=== PATIENT | male | born 1940 | race Caucasian/White ===

== ENCOUNTER 2017-03-30 11:12 | Outpatient (CLI) | payer MEDICARE, BC ==
--- NOTE | 2017-03-30 14:27 | RAD ---
FRONTAL AND LATERAL IMAGING OF THE CHEST: DATE: 03/30/17. COMPARISON: 06/19/16. HISTORY: Short of breath. FINDINGS: There is mild increased linear interstitial density within both lung bases. Lungs are mildly hyperin flated suggesting stable mild air trapping. There is no pneumothorax or pleural fluid. There is no lobar consolidation or alveolar edema. IMPRESSION: Stable interstitial prominence and pulmonary hyperinflation. Question a history of chronic obstructi ve pulmonary disease. No lobar consolidation or alveolar edema seen. POS: [facility]
== END 2017-03-30 11:13 | disposition home or self-care (01) ==
LOC: RAD 11:12
PROVIDERS: ATTEND Internal Medicine Pulmonary Disease
DX: R06.00 Dyspnea, unspecified (principal); J98.4 Other disorders of lung
CPT/HCPCS: 71020

== ENCOUNTER 2017-07-30 15:09 | Outpatient (CLI) | payer MEDICARE, BC | END 2017-07-30 15:10 | disposition home or self-care (01) | LOC: BICCT 15:09 | PROVIDERS: ATTEND Internal Medicine Cardiovascular Disease | DX: S09.90XA Unspecified injury of head, initial encounter (principal) | CPT/HCPCS: 70450 ==

== ENCOUNTER 2017-08-03 10:47 | Emergency (ER) | payer MEDICARE, BC ==
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
== END 2017-08-03 12:33 | disposition home or self-care (01) ==
LOC: ERS 10:47
DX: S06.0X0A Concussion without loss of consciousness, initial encounter (principal); S00.03XA Contusion of scalp, initial encounter; J44.9 Chronic obstructive pulmonary disease, unspecified; E78.5 Hyperlipidemia, unspecified; I48.91 Unspecified atrial fibrillation; I10 Essential (primary) hypertension; F32.9 Major depressive disorder, single episode, unspecified; Z87.891 Personal history of nicotine dependence; Z79.899 Other long term (current) drug therapy; W20.8XXA Other cause of strike by thrown, projected or falling object, initial encounter
CPT/HCPCS: 70450; 72125

== ENCOUNTER 2017-08-27 07:26 | Outpatient (CLI) | payer MEDICARE, BC | END 2017-08-27 07:27 | disposition home or self-care (01) | LOC: BICMRI 07:26 | PROVIDERS: ATTEND Internal Medicine | DX: F03.90 Unspecified dementia, unspecified severity, without behavioral disturbance, psychotic disturbance, mood disturbance, and anxiety (principal); G93.89 Other specified disorders of brain | CPT/HCPCS: 70553; 82565 ==

== ENCOUNTER 2019-02-01 12:52 | Outpatient (CLI) | payer MEDICARE, BC ==
--- NOTE | 2019-02-01 13:26 | RAD ---
Chest 2 views HISTORY: Dyspnea. COMPARISON: 01/14/2019. FINDINGS: Cardiac silhouette and pulmonary vasculature are unremarkable. Mediastinum is midline with aortic calcification. Lungs remain hyperinflated with mild linear scarring at each base. No confluent airspace consolidation, pneumothorax, or pleural fluid. IMPRESSION: Atherosclerosis. Pulmonary hyperinflation and other chronic-type findings are stable.
== END 2019-02-01 12:53 | disposition home or self-care (01) ==
LOC: RAD 12:52
PROVIDERS: ATTEND Internal Medicine Pulmonary Disease
DX: R06.00 Dyspnea, unspecified (principal); R91.8 Other nonspecific abnormal finding of lung field; I70.0 Atherosclerosis of aorta; J98.4 Other disorders of lung
CPT/HCPCS: 71046

== ENCOUNTER 2019-02-02 12:00 | Inpatient (IN) | payer MEDICARE, BC ==
[2019-02-03] MEDS ORDERED: Nitroglycerin 50 MG/250 ML BOT 250 ML ONE (06:19)
[2019-02-03] MEDS ORDERED: Phenylephrine HCL 10 MG/ML VIAL ONE (06:19)
[2019-02-03] MEDS ORDERED: Fentanyl 100 MCG/2 ML VIAL ONE (06:20)
[2019-02-03] MEDS ORDERED: Heparin 5,000 UNITS/ML VIAL ONE (06:32)
[2019-02-03] MEDS ORDERED: Protamine Sulfate 50 MG/5 ML VIAL ONE (06:32)
[2019-02-03] MEDS ORDERED: Bupivacaine/Epinephrine 0.25% 30 ML VIAL ONE (06:32)
[2019-02-03] MEDS ORDERED: hydrALAZINE 20 MG/ML VIAL SLOW IVP PRN (10:31)
[2019-02-03] MEDS ORDERED: Ondansetron PF 4 MG/2 ML Vial IVP PRN (10:31)
[2019-02-03] MEDS ORDERED: Fentanyl 100 MCG/2 ML VIAL SLOW IVP PRN (10:31)
[2019-02-03] MEDS ORDERED: Sodium Chloride 0.9% 1,000 ML IV SCH (10:31)
[2019-02-03] MEDS ORDERED: HYDROcodone/Acetaminophen 5/325 mg Tablet PO PRN ×2 (10:31)
[2019-02-03] MEDS ORDERED: Nitroglycerin 50 MG/250 ML BOT 250 ML IVPB PRN (10:31)
[2019-02-03 10:58] VITALS: BMI 29.7
[2019-02-03] MEDS: Acetaminophen 325 MG TAB PO PRN (11:36)
[2019-02-03] MEDS ORDERED: DOPamine 400 MG/D5W 250 ML 250 ML ONE (12:40)
[2019-02-03] MEDS ORDERED: DOPamine 400 MG/D5W 250 ML 250 ML IVPB SCH (12:45)
[2019-02-03] MEDS: Ibuprofen 800 MG TAB PO SCH ×2 (13:29→21:42)
[2019-02-03] MEDS: CEFAZOLIN 2 GM in Premix Bag 1 BAG IVPB SCH ×2 (13:29→21:41)
[2019-02-03] MEDS ORDERED: Mometasone/Formoterol 120 PUFF INHALER INH SCH (18:30)
[2019-02-03] MEDS ORDERED: Rosuvastatin 20 MG TAB PO SCH (21:00)
[2019-02-03] MEDS ORDERED: Lisinopril 20 MG TAB PO SCH (21:00)
[2019-02-03] MEDS ORDERED: Non-Formulary Item 1 EACH (Budesonide-Formoterol [Symbicort 160-4.5] 1 PUFF) INH SCH (21:00)
[2019-02-03] MEDS ORDERED: Tamsulosin HCl 0.4 MG CAP PO SCH (21:00)
[2019-02-03] MEDS ORDERED: ALPRAZolam 0.25 MG TAB PO SCH (21:00)
[2019-02-03] MEDS ORDERED: Polyethylene Glycol 3350 17 GM Packet PO SCH (21:00)
[2019-02-04] MEDS: Acetaminophen 325 MG TAB PO PRN (01:08)
[2019-02-04] MEDS: Ibuprofen 800 MG TAB PO SCH (06:10)
[2019-02-04] MEDS: CEFAZOLIN 2 GM in Premix Bag 1 BAG IVPB SCH (06:11)
[2019-02-04 06:32] VITALS: TEMP 98.7
[2019-02-04] MEDS ORDERED: Furosemide 20 MG TAB PO SCH (09:00)
[2019-02-04] MEDS ORDERED: Aspirin Chewable 81 MG TAB PO SCH (09:00)
--- NOTE | 2019-02-04 09:34 | OP ---
DATE OF PROCEDURE: 02/03/2019 PREOPERATIVE DIAGNOSIS: Critical asymptomatic right carotid stenosis. PROCEDURE PERFORMED: Right carotid endarterectomy with bovine patch. ANESTHESIA: General. ESTIMATED BLOOD LOSS: Less than 100. DESCRIPTION OF PROCEDURE: After adequate anesthesia had been obtained, ultrasound was used to isolate the carotid artery bulb and the patient was then prepped and draped. Incision was made and carried down through the platysma, rotating sternocleidomastoid muscle. Facial vein branches were ligated and divided x2. The hypoglossal nerve was mobilized for a good distance, taking care to avoid picking it up in order to allow access to the internal carotid artery above the plaque. Following heparinization with good ACT levels, clamps were applied. Arteriotomy performed and a 12-[place] shunt was placed in a vessel that could have perhaps handled a 14-[place]ic shunt, although due to space limitations, I was hesitant to use this for a stiff 14 shunt. Endarterectomy was then performed with nice tapering distally. The area was thoroughly irrigated with heparin saline and a patch used to close rather patulous bulb. Prior to completing the suture line, the shunt was removed, vessels backflushed and forward flushed and flow restored up the external and then internal carotid artery. Following this, protamine was given to partially reverse the heparin and after obtaining good hemostasis, the wound was irrigated and closed in layers. Job ID: [id number]
[2019-02-04] MEDS ORDERED: FLU VACC TS2019-20(65YR UP)/PF 180 MCG/0.5 ML SYRINGE IM ONE (11:45)
[2019-02-04] MEDS ORDERED: Prevnar 13-Val Conj/PF 0.5 ML SYRINGE IM ONE (11:45)
--- NOTE | 2019-02-04 11:51 | DIS ---
DATE OF ADMISSION: 02/03/2019 DATE OF DISCHARGE: 02/04/2019 The patient was brought to the hospital for a critical asymptomatic right internal carotid artery stenosis. Surgical intervention was undertaken and he did well from this. His blood pressure was on the low side perioperatively and his lisinopril has been discontinued at least for the time being. He states his blood pressure gas been running low at home for some time and we may consider restarting his lisinopril at a lower dose instead of the 40 mg. I have asked him to check his blood pressure and keep track of his systolic pressures and we will adjust accordingly. Otherwise, he is to resume his home medications with no new prescriptions. He has mild swelling in his right side of his neck. Otherwise, no issues and will be followed up in 3 weeks. Job ID: [id number]
== END 2019-02-04 09:30 | disposition home or self-care (01) | DRG 39 ==
LOC: SURG A 02-03 05:39 → CCU 02-03 10:32
PROVIDERS: ADMIT Thoracic Surgery (Cardiothoracic Vascular Surgery); ATTEND Thoracic Surgery (Cardiothoracic Vascular Surgery)
PROC: 03CK0ZZ Extirpation of Matter from Right Internal Carotid Artery, Open Approach (ICD-10-PCS; principal; 2019-02-03)
PROC: 03UK0KZ Supplement Right Internal Carotid Artery with Nonautologous Tissue Substitute, Open Approach (ICD-10-PCS; 2019-02-03)
DX: I65.21 Occlusion and stenosis of right carotid artery (principal); Z96.642 Presence of left artificial hip joint; Z98.41 Cataract extraction status, right eye
CPT/HCPCS: 71046; 80048; 85027; 93005; 93010; J0690; J1265; J1642; J1644; J2370; J2405; J2720; J3010

== ENCOUNTER 2019-02-02 12:17 | Outpatient (CLI) | payer MEDICARE, BC ==
[2019-02-02 15:00] LABS: Hemoglobin 13.7 g/dL (14.0-18.0); Mean Corpuscular HGB CONC 33.7 g/dL (32.0-36.0); Mean Corpuscular Hemoglobin 30.4 pg (27.0-31.0); Mean Corpuscular Volume 90.3 fL (78.0-98.0); Mean Platelet Volume 7.9 fL (7.4-10.4); Platelet Count 272 thou/uL (130-400); RBC Distribution Width 11.8 % (11.5-14.5); Red Blood Cell (RBC) Count 4.49 mill/uL (4.70-6.10); White Blood Cell (WBC) Count 9.3 thou/uL (4.8-10.8)
[2019-02-02 15:19] LABS: Anion Gap 13 mmol/L (10-20); BUN (Urea Nitrogen) 21 mg/dL (8.4-25.7); Calc. Creatinine Clearance 0 mL/min (70-130); Calcium 9.4 mg/dL (7.8-10.44); Carbon Dioxide 28 mmol/L (23-31); Chloride 103 mmol/L (98-107); Estimated GFR-MDRD Greater than 90; Glucose 86 mg/dL (83-110); Sodium 140 mmol/L (136-145)
--- NOTE | 2019-02-03 23:25 | EKG ---
Test Reason : Blood Pressure : / mmHG Vent. Rate : 071 BPM Atrial Rate : 071 BPM P-R Int : 134 ms QRS Dur : 086 ms QT Int : 436 ms P-R-T Axes : 022 069 049 degrees QTc Int : 473 ms Normal sinus rhythm Normal ECG When compared with ECG of 20-NOV-2016 15:20, No significant change was found Confirmed by Mae FISHER ([id number]) on 02/03/2019 11:25:15 PM Referred By: ELIZABETH Confirmed By:Mae FISHER
== END 2019-02-02 12:18 | disposition home or self-care (01) ==
LOC: LABBT 12:17
PROVIDERS: ATTEND Thoracic Surgery (Cardiothoracic Vascular Surgery)
DX: I49.3 Ventricular premature depolarization (principal); I48.91 Unspecified atrial fibrillation
CPT/HCPCS: 80048; 85027; 93005; 93010

== ENCOUNTER 2019-11-02 11:50 | Emergency (ER) | payer MEDICARE, BC ==
[2019-11-02 12:48] LABS: #Basophils 0.1 thou/uL (0.0-0.2); #Eosinphils 0.1 thou/uL (0.0-0.7); #Lymphocytes 1.9 thou/uL (1.20-3.40); #Monocytes 0.7 thou/uL (0.11-0.59); #Neutrophils 5.2 thou/uL (1.40-6.50); %Eosinophils 1.6 % (0.0-10.0); %Lymphocytes 23.2 % (21.0-51.0); %Monocytes 9.2 % (0.0-10.0); Hemoglobin 13.3 g/dL (14.0-18.0); Mean Corpuscular HGB CONC 32.8 g/dL (32.0-36.0); Mean Corpuscular Hemoglobin 29.1 pg (27.0-31.0); Mean Corpuscular Volume 88.7 fL (78.0-98.0); Mean Platelet Volume 8.2 fL (7.4-10.4); Platelet Count 252 thou/uL (130-400); RBC Distribution Width 12.8 % (11.5-14.5); Red Blood Cell (RBC) Count 4.59 mill/uL (4.70-6.10); White Blood Cell (WBC) Count 8.1 thou/uL (4.8-10.8)
--- NOTE | 2019-11-02 12:50 | RAD ---
RADIOGRAPH CHEST 1 VIEW: DATE: 11/02/2019 HISTORY: 79-year-old male with dyspnea and cardiac dysrhythmia. FINDINGS: There are no airspace densities, pulmonary edema, pneumothorax, or cardiomegaly. The lateral costophr enic angles are sharp. IMPRESSION: No acute cardiopulmonary findings.
[2019-11-02 13:05] LABS: ALT (SGPT) 20 U/L (8-55); AST (SGOT) 27 U/L (5-34); Albumin 4.2 g/dL (3.4-4.8); Alkaline Phosphatase 67 U/L (40-110); Anion Gap 10 mmol/L (10-20); BUN (Urea Nitrogen) 13 mg/dL (8.4-25.7); Bilirubin, Total 0.4 mg/dL (0.2-1.2); Calc. Creatinine Clearance 0 mL/min (70-130); Calcium 8.4 mg/dL (7.8-10.44); Carbon Dioxide 29 mmol/L (23-31); Chloride 104 mmol/L (98-107); Estimated GFR-MDRD 80; Globulin 2.4 g/dL (2.4-3.5); Glucose 98 mg/dL (83-110); Protein, Total 6.6 g/dL (5.8-8.1); Sodium 139 mmol/L (136-145)
== END 2019-11-02 13:50 | disposition home or self-care (01) ==
LOC: ERS 11:50
DX: R00.2 Palpitations (principal); I10 Essential (primary) hypertension; J44.9 Chronic obstructive pulmonary disease, unspecified; E78.5 Hyperlipidemia, unspecified; Z87.891 Personal history of nicotine dependence; Z79.899 Other long term (current) drug therapy
CPT/HCPCS: 36415; 71045; 80053; 83880; 84484; 85025; 93005

== ENCOUNTER 2020-10-05 12:14 | Emergency (ER) | payer BC ==
[2020-10-05 13:41] LABS: #Eosinphils 0.2 thou/uL (0.0-0.7); #Lymphocytes 2.8 thou/uL (1.20-3.40); #Monocytes 1.1 thou/uL (0.11-0.59); #Neutrophils 5.4 thou/uL (1.40-6.50); %Basophils 0.2 % (0.0-1.0); %Eosinophils 1.8 % (0.0-10.0); %Lymphocytes 29.2 % (21.0-51.0); %Monocytes 11.6 % (0.0-10.0); %Neutrophils 57.2 % (42.0-75.0); Hemoglobin 13.6 g/dL (14.0-18.0); Mean Corpuscular HGB CONC 33.8 g/dL (32.0-36.0); Mean Corpuscular Hemoglobin 29.4 pg (27.0-31.0); Mean Corpuscular Volume 86.8 fL (78.0-98.0); Platelet Count 216 thou/uL (130-400); RBC Distribution Width 15.5 % (11.5-14.5); Red Blood Cell (RBC) Count 4.63 mill/uL (4.70-6.10); White Blood Cell (WBC) Count 9.5 thou/uL (4.8-10.8)
[2020-10-05 14:07] LABS: ALT (SGPT) 19 U/L (8-55); AST (SGOT) 21 U/L (5-34); Albumin 4.4 g/dL (3.4-4.8); Alkaline Phosphatase 63 U/L (40-110); Anion Gap 13 mmol/L (10-20); BUN (Urea Nitrogen) 20 mg/dL (8.4-25.7); Bilirubin, Total 0.4 mg/dL (0.2-1.2); Calc. Creatinine Clearance 0 mL/min (70-130); Calcium 9.7 mg/dL (7.8-10.44); Carbon Dioxide 32 mmol/L (23-31); Chloride 102 mmol/L (98-107); Globulin 2.3 g/dL (2.4-3.5); Glucose 87 mg/dL (83-110); Potassium 3.9 mmol/L (3.5-5.1); Protein, Total 6.7 g/dL (5.8-8.1); Sodium 143 mmol/L (136-145)
== END 2020-10-05 14:50 | disposition home or self-care (01) ==
LOC: ERS 12:14
DX: J44.1 Chronic obstructive pulmonary disease with (acute) exacerbation (principal); I48.91 Unspecified atrial fibrillation; E78.5 Hyperlipidemia, unspecified; I10 Essential (primary) hypertension; F03.90 Unspecified dementia, unspecified severity, without behavioral disturbance, psychotic disturbance, mood disturbance, and anxiety; Z79.82 Long term (current) use of aspirin; Z79.899 Other long term (current) drug therapy; Z87.891 Personal history of nicotine dependence
CPT/HCPCS: 36415; 71045; 80053; 83880; 85025; 93005; J7620

== ENCOUNTER 2022-06-26 13:49 | Inpatient (IN) | payer MEDICARE ==
[2022-06-26 14:47] LABS: #Basophils 0.1 thou/uL (0.0-0.2); #Eosinphils 0.2 thou/uL (0.0-0.7); #Lymphocytes 2.1 thou/uL (1.20-3.40); #Neutrophils 9.3 thou/uL (1.40-6.50); %Basophils 0.4 % (0.0-1.0); %Eosinophils 1.3 % (0.0-10.0); %Lymphocytes 16.4 % (21.0-51.0); %Monocytes 7.7 % (0.0-10.0); %Neutrophils 74.2 % (42.0-75.0); Hemoglobin 14.6 g/dL (14.0-18.0); Mean Corpuscular Hemoglobin 31.8 pg (27.0-31.0); Mean Corpuscular Volume 93.6 fl (78.0-98.0); Mean Platelet Volume 8.6 fL (7.4-10.4); Platelet Count 214 10x3/uL (130-400); RBC Distribution Width 11.4 % (11.5-14.5); Red Blood Cell (RBC) Count 4.59 mill/uL (4.70-6.10); White Blood Cell (WBC) Count 12.5 10x3/uL (4.8-10.8)
[2022-06-26 15:09] LABS: ALT (SGPT) 18 U/L (8-55); AST (SGOT) 23 U/L (5-34); Albumin 4.6 g/dL (3.4-4.8); Alkaline Phosphatase 69 U/L (40-110); Anion Gap 15 mmol/L (10-20); BUN (Urea Nitrogen) 23 mg/dL (8.4-25.7); Bilirubin, Total 0.5 mg/dL (0.2-1.2); Calc. Creatinine Clearance 0 mL/min (70-130); Carbon Dioxide 26 mmol/L (23-31); Chloride 103 mmol/L (98-107); Estimated GFR 66; Globulin 2.1 g/dL (2.4-3.5); Glucose 95 mg/dL (83-110); Potassium 4.5 mmol/L (3.5-5.1); Protein, Total 6.7 g/dL (5.8-8.1); Sodium 139 mmol/L (136-145)
[2022-06-26] MEDS ORDERED: Aspirin 325 MG TAB ONE (16:16)
[2022-06-26 16:35] LABS: Bilirubin Negative (Negative); Blood, Urine Negative (Negative); Clarity Clear (Clear); Glucose, Urine (Dipstick) Normal (Negative); Ketone, Urine Negative (Negative); Leukocyte Negative Leu/uL (Negative); Nitrite Negative (Negative); Protein, Urine (Dipstick) Negative (Neg-Trace); Specific Gravity, Urine 1.017 (1.002-1.036); Urobilinogen Normal mg/dL (Less than 2); pH, Urine 6.5 (5.0-9.0)
[2022-06-26] MEDS ORDERED: Acetaminophen 650 MG Suppository PR PRN (16:43)
[2022-06-26] MEDS ORDERED: Ondansetron PF 4 MG/2 ML Vial IVP PRN (16:43)
[2022-06-26] MEDS ORDERED: Ondansetron ODT 4 MG TAB PO PRN (16:43)
[2022-06-26] MEDS ORDERED: hydrALAZINE 20 MG/ML VIAL SLOW IVP PRN (16:43)
[2022-06-26] MEDS ORDERED: Ipratropium/Albuterol 3 ML NEB NEB PRN (17:23)
[2022-06-26] MEDS: Atorvastatin Calcium 40 MG TAB PO SCH (20:54)
[2022-06-27 04:54] LABS: #Eosinphils 0.3 thou/uL (0.0-0.7); #Monocytes 0.6 thou/uL (0.11-0.59); #Neutrophils 5.4 thou/uL (1.40-6.50); %Basophils 0.5 % (0.0-1.0); %Eosinophils 3.5 % (0.0-10.0); %Lymphocytes 24.4 % (21.0-51.0); %Monocytes 6.6 % (0.0-10.0); Hemoglobin 13.7 g/dL (14.0-18.0); Mean Corpuscular HGB CONC 33.8 g/dL (32.0-36.0); Mean Corpuscular Hemoglobin 31.8 pg (27.0-31.0); Mean Corpuscular Volume 94.1 fl (78.0-98.0); Mean Platelet Volume 8.9 fL (7.4-10.4); Platelet Count 175 10x3/uL (130-400); RBC Distribution Width 11.5 % (11.5-14.5); Red Blood Cell (RBC) Count 4.32 mill/uL (4.70-6.10); White Blood Cell (WBC) Count 8.4 10x3/uL (4.8-10.8)
[2022-06-27 05:16] LABS: Anion Gap 13 mmol/L (10-20); BUN (Urea Nitrogen) 21 mg/dL (8.4-25.7); Calc. Creatinine Clearance 76 mL/min (70-130); Calcium 8.7 mg/dL (7.8-10.44); Carbon Dioxide 23 mmol/L (23-31); Cardiac Risk 3.5 (Less than 4.5); Chloride 108 mmol/L (98-107); Cholesterol 107 mg/dl (< 200 Desired); Estimated GFR 87; Glucose 92 mg/dL (83-110); HDL Cholesterol 31 mg/dL (>60 Neg Risk); LDL Cholesterol, Calculated 48 mg/dL; Potassium 4.1 mmol/L (3.5-5.1); Sodium 140 mmol/L (136-145); Triglycerides 141 mg/dL (Less than 150)
[2022-06-27] MEDS: Aspirin 81 mg Enteric Coated Tablet PO SCH (09:34)
[2022-06-27 09:37] VITALS: BMI 24.7
[2022-06-27] MEDS ORDERED: Melatonin 3 MG TAB PO PRN (15:13)
[2022-06-27] MEDS ORDERED: Amlodipine 5 MG TAB PO SCH (15:15)
[2022-06-27] MEDS: Atorvastatin Calcium 40 MG TAB PO SCH (20:39)
[2022-06-27] MEDS: ALPRAZolam 0.25 MG TAB PO SCH ×2 (20:39→22:21)
[2022-06-27] MEDS: Tamsulosin HCl 0.4 MG CAP PO SCH ×2 (20:39→20:40)
[2022-06-28 04:49] LABS: #Eosinphils 0.3 thou/uL (0.0-0.7); #Lymphocytes 2.2 thou/uL (1.20-3.40); #Monocytes 0.8 thou/uL (0.11-0.59); #Neutrophils 5.4 thou/uL (1.40-6.50); %Basophils 0.6 % (0.0-1.0); %Eosinophils 2.9 % (0.0-10.0); %Monocytes 9.3 % (0.0-10.0); %Neutrophils 62.2 % (42.0-75.0); Hemoglobin 14.3 g/dL (14.0-18.0); Mean Corpuscular HGB CONC 33.8 g/dL (32.0-36.0); Mean Corpuscular Hemoglobin 31.8 pg (27.0-31.0); Mean Platelet Volume 8.7 fL (7.4-10.4); Platelet Count 184 10x3/uL (130-400); RBC Distribution Width 11.3 % (11.5-14.5); Red Blood Cell (RBC) Count 4.51 mill/uL (4.70-6.10); White Blood Cell (WBC) Count 8.7 10x3/uL (4.8-10.8)
[2022-06-28 05:11] LABS: Anion Gap 11 mmol/L (10-20); BUN (Urea Nitrogen) 15 mg/dL (8.4-25.7); Calc. Creatinine Clearance 87 mL/min (70-130); Calcium 9.1 mg/dL (7.8-10.44); Carbon Dioxide 28 mmol/L (23-31); Chloride 105 mmol/L (98-107); Estimated GFR 90; Glucose 101 mg/dL (83-110); Potassium 4.3 mmol/L (3.5-5.1); Sodium 140 mmol/L (136-145)
[2022-06-28] MEDS: Acetaminophen 325 MG TAB PO PRN ×2 (05:51→16:24)
[2022-06-28] MEDS ORDERED: Amlodipine 5 MG TAB PO SCH (09:00)
[2022-06-28] MEDS ORDERED: Donepezil HCl 10 MG TAB PO SCH (09:00)
[2022-06-28] MEDS: Aspirin 81 mg Enteric Coated Tablet PO SCH (09:05)
[2022-06-28 16:04] VITALS: BP 185/79; TEMP 97.6
[2022-06-28] MEDS ORDERED: Rosuvastatin 20 MG TAB PO SCH (21:00)
[2022-06-29] MEDS ORDERED: FLU VACC QS2022-23(65YR UP)/PF 240 MCG/0.7 ML SYRINGE IM ONE (09:00)
== END 2022-06-28 16:47 | DRG 149 ==
LOC: ERS 13:49 → ERHOLD 16:53 → 2NO 06-27 01:22 → OBSVTOIN 06-27 15:09
PROVIDERS: ADMIT Internal Medicine; ATTEND Internal Medicine
DX: R42 Dizziness and giddiness (principal); I10 Essential (primary) hypertension; E78.5 Hyperlipidemia, unspecified; I25.10 Atherosclerotic heart disease of native coronary artery without angina pectoris; K21.9 Gastro-esophageal reflux disease without esophagitis; G47.33 Obstructive sleep apnea (adult) (pediatric); I48.91 Unspecified atrial fibrillation; F41.9 Anxiety disorder, unspecified; F03.90 Unspecified dementia, unspecified severity, without behavioral disturbance, psychotic disturbance, mood disturbance, and anxiety; F32.A Depression, unspecified; J44.9 Chronic obstructive pulmonary disease, unspecified; Z79.82 Long term (current) use of aspirin; Z79.51 Long term (current) use of inhaled steroids; Z79.899 Other long term (current) drug therapy; Z95.5 Presence of coronary angioplasty implant and graft
CPT/HCPCS: 36415; 70450; 71045; 80048; 80053; 80061; 81003; 84484; 85025; 93005; 93306; 93880; G0378; U0003; U0005

== ENCOUNTER 2023-05-13 14:01 | Outpatient (CLI) | payer MEDICARE, BC | END 2023-05-13 14:02 | disposition home or self-care (01) | LOC: RAD 14:01 | PROVIDERS: ATTEND Internal Medicine | DX: J96.11 Chronic respiratory failure with hypoxia (principal) | CPT/HCPCS: 71046 ==

== ENCOUNTER 2024-04-30 19:15 | Inpatient (IN) | payer MEDICARE, BC ==
[2024-04-30 20:44] LABS: #Basophils 0.04 10x3/uL (0.0-0.2); #Eosinophils Less than 0.03 10x3/uL (0.0-0.7); %Basophils 0.4 % (0.0-1.0); %Eosinophils 0.2 % (0.0-10.0); %Lymphocytes 16.2 % (21.0-51.0); %Monocytes 7.2 % (0.0-10.0); %Neutrophils 75.6 % (42.0-75.0); Mean Corpuscular HGB CONC 33.3 g/dL (32.0-36.0); Mean Corpuscular Hemoglobin 29.5 pg (27.0-31.0); Mean Corpuscular Volume 88.4 fL (78.0-98.0); Mean Platelet Volume 9.5 fL (7.4-10.4); Platelet Count 282 10x3/uL (130-400); RBC Distribution Width 14.1 % (11.5-14.5); Red Blood Cell (RBC) Count 4.75 mill/uL (4.70-6.10)
[2024-04-30 20:45] LABS: Bacteria/HPF None Seen HPF (None Seen); Bilirubin Negative (Negative); Blood, Urine Negative (Negative); CAUTI Indications for Culture Alt mental st,lethar; Clarity Clear (Clear); Glucose, Urine (Dipstick) Normal (Negative); Ketone, Urine Negative (Negative); Leukocyte Negative Leu/uL (Negative); Nitrite Negative (Negative); Protein, Urine (Dipstick) Negative (Neg-Trace); RBC/HPF None Seen HPF (0-3); Specific Gravity, Urine 1.009 (1.002-1.036); Squamous Epithelial None Seen HPF (0-3); Urobilinogen Normal mg/dL (Less than 2); WBC/HPF 0-3 HPF (0-3)
[2024-04-30 20:46] LABS: Urine Culture Reflex No No
[2024-04-30 21:05] LABS: Actual Bicarbonate (HCO3a) 26.3 mEq/L (22-28); Analyzer IN Cardio ER; Base Excess (BEa) 1.9 mEq/L (-2.0 to +3.0); CO2 Tension 40.3 mmHg (35.0-45.0); Carboxyhemoglobin (COHb) 1.5 gm% (0.0-3.0); Hematocrit-ABG 42 % (42.0-52.0); Hemoglobin (Hb) 14.3 g/dL (14.0-18.0); Potassium - ABG Lab 3.77 mmol/L (3.70-5.30); pH, Arterial 7.432 (7.35-7.45)
[2024-04-30 21:06] LABS: ALV-art Gradient 43.455 mmHg (0-20); O2 Tension (PaO2), arterial 55.9 mmHg (> 60.0); Puncture Site Right Radial artery
[2024-04-30 21:08] LABS: ALT (SGPT) 22 U/L (8-55); AST (SGOT) 20 U/L (5-34); Albumin 3.8 g/dL (3.4-4.8); Alkaline Phosphatase 79 U/L (40-110); Anion Gap 16 mmol/L (10-20); BUN (Urea Nitrogen) 22 mg/dL (8.4-25.7); Bilirubin, Total 0.5 mg/dL (0.2-1.2); Calc. Creatinine Clearance 0 mL/min (70-130); Calcium 9.1 mg/dL (7.8-10.44); Carbon Dioxide 22 mmol/L (23-31); Chloride 106 mmol/L (98-107); Estimated GFR 89; Glucose 100 mg/dL (83-110); Magnesium 2.3 mg/dL (1.6-2.6); Potassium 3.8 mmol/L (3.5-5.1); Protein, Total 6.8 g/dL (5.8-8.1); Sodium 140 mmol/L (136-145); Troponin I 0.013 ng/mL (< 0.028)
[2024-04-30] MEDS ORDERED: Ondansetron PF 4 MG/2 ML Vial IVP PRN (23:30)
[2024-04-30] MEDS ORDERED: Ondansetron ODT 4 MG TAB SL PRN (23:30)
[2024-05-01 00:29] LABS: Troponin I Less than 0.010 ng/mL (< 0.028)
[2024-05-01 02:26] VITALS: BMI 23.1
[2024-05-01 05:43] LABS: Troponin I 0.014 ng/mL (< 0.028)
[2024-05-01] MEDS: Metoprolol Tartrate 25 MG TAB PO SCH (10:36)
[2024-05-01] MEDS: Acetaminophen 325 MG TAB PO PRN (10:36)
[2024-05-01] MEDS: Amlodipine 10 MG TAB PO SCH (10:36)
[2024-05-01] MEDS: Aspirin 81 mg Enteric Coated Tablet PO SCH (10:36)
[2024-05-01] MEDS: Memantine 10 MG TAB PO SCH (10:36)
[2024-05-01] MEDS: Donepezil HCl 10 MG TAB PO SCH (10:36)
[2024-05-01] MEDS: Sertraline 100 MG TAB PO SCH (20:52)
[2024-05-01] MEDS: Rosuvastatin 20 MG TAB PO SCH (20:52)
[2024-05-01] MEDS: QUEtiapine 25 MG TAB PO SCH (20:53)
[2024-05-01] MEDS: Tamsulosin HCl 0.4 MG CAP PO SCH (20:53)
[2024-05-01] MEDS: Melatonin 3 MG TAB PO PRN (21:01)
[2024-05-02 13:55] VITALS: BMI 22.7
[2024-05-04 15:39] VITALS: BP 162/67; TEMP 97.6
== END 2024-05-04 16:10 | DRG 884 ==
LOC: ERS 19:15 → ERHOLD 23:16 → T4-B 05-01 02:45 → OBSVTOIN 05-02 17:39
PROVIDERS: ADMIT Student in an Organized Health Care Education/Training Program; ATTEND Internal Medicine
DX: F03.B18 Unspecified dementia, moderate, with other behavioral disturbance (principal); I48.11 Longstanding persistent atrial fibrillation; N40.0 Benign prostatic hyperplasia without lower urinary tract symptoms; F41.9 Anxiety disorder, unspecified; F32.A Depression, unspecified; E78.5 Hyperlipidemia, unspecified; I10 Essential (primary) hypertension; J44.9 Chronic obstructive pulmonary disease, unspecified; F03.B3 Unspecified dementia, moderate, with mood disturbance; F03.B4 Unspecified dementia, moderate, with anxiety; Z96.651 Presence of right artificial knee joint; Z79.899 Other long term (current) drug therapy; Z95.0 Presence of cardiac pacemaker; Z91.83 Wandering in diseases classified elsewhere
CPT/HCPCS: 36415; 36600; 70450; 71045; 73522; 80053; 81001; 82805; 83605; 83735; 84443; 84484; 85025; 93005; G0378

== ENCOUNTER 2024-06-07 20:23 | Emergency (ER) | payer BC, MEDICARE ==
[2024-06-07] MEDS ORDERED: Acetaminophen 500 MG TAB ONE (20:37)
[2024-06-07] MEDS ORDERED: traMADol HCl 50 MG TAB ONE (21:19)
== END 2024-06-07 21:36 ==
LOC: ERS 20:23
DX: S72.142A Displaced intertrochanteric fracture of left femur, initial encounter for closed fracture (principal); I48.91 Unspecified atrial fibrillation; I10 Essential (primary) hypertension; J44.9 Chronic obstructive pulmonary disease, unspecified; X58.XXXA Exposure to other specified factors, initial encounter; Z87.891 Personal history of nicotine dependence
CPT/HCPCS: 70450; 72125